=== PATIENT | male | born 1990 | race Caucasian/White ===

== ENCOUNTER → 2019-10-19 15:42 | Outpatient (BNVA) | payer OTHER, SELFPAY | PROVIDERS: Family Provider Family Medicine; PCP Family Medicine; Visit Provider Family Medicine | DX: E11.9 Type 2 diabetes mellitus without complications (principal); E78.5 Hyperlipidemia, unspecified; K21.9 Gastro-esophageal reflux disease without esophagitis | CPT/HCPCS: 80053; 80061; 82044; 83036; 85025 ==

== ENCOUNTER → 2019-11-23 13:58 | Outpatient (BNVA) | payer OTHER, SELFPAY | PROVIDERS: Family Provider Family Medicine; PCP Family Medicine; Visit Provider Family Medicine | DX: E78.2 Mixed hyperlipidemia (principal); E11.9 Type 2 diabetes mellitus without complications; K21.9 Gastro-esophageal reflux disease without esophagitis; F17.219 Nicotine dependence, cigarettes, with unspecified nicotine-induced disorders | CPT/HCPCS: 80053 ==

== ENCOUNTER 2020-04-06 08:39 | Outpatient (CLI) | payer OTHER, SELFPAY ==
[2020-04-06 09:24] LABS: Alanine Aminotransferase 15 U/L (0-41); Albumin Level 4.8 g/dL (3.5-5.2); Alkaline Phosphatase 59 IU/L (40-130); Anion Gap 13.9 (5-19); Aspartate Amino Transferase 15 U/L (0-40); Blood Urea Nitrogen 15 mg/dL (6-20); Calcium 9.4 mg/dL (8.5-10.5); Carbon Dioxide 28 mmol/L (22-29); Chloride 100 mmol/L (98-107); Chol HDL Ratio 2.82 mg/dL (1.0-5.00); Cholesterol 144 mg/dL (0-200); Globulin 2.8 g/dL (1.3-4.6); Glucose 113 mg/dL (65-115); HDL Cholesterol 51 mg/dL (60-100); LDL Cholesterol Calculated 82 mg/dL (50-129); LDL HDL Ratio 1.61 RATIO (0.00-3.22); Osmolality Calculated 283 mOsm/kg (285-295); Potassium 3.9 mmol/L (3.5-5.1); Sodium 138 mmol/L (136-145); Total Bilirubin 0.4 mg/dL (0.15-1.2); Total Protein 7.6 g/dL (6.6-8.7); Triglycerides 53 mg/dL (0-150)
[2020-04-06 09:27] LABS: Estmated Average Glucose 160; Hemoglobin A1C 7.2 % (4.0-6.0)
== END 2020-04-06 08:40 | disposition home or self-care (01) ==
LOC: LAB 08:43
PROVIDERS: PCP Family Medicine; Visit Provider Family Medicine
DX: E78.2 Mixed hyperlipidemia (principal); E11.9 Type 2 diabetes mellitus without complications
CPT/HCPCS: 36415; 80053; 80061; 83036

== ENCOUNTER 2020-06-15 21:00 | Emergency (ER) | payer OTHER, SELFPAY ==
[2020-06-15 21:14] VITALS: BP 138/80; PULSE 100; RESP 18; TEMP 36.7; O2SAT 97; BMI 25.4
--- NOTE | 2020-06-15 21:28 | ED_ITS ---
HPI - Dental/Oral General: Chief complaint: Dental/Oral Stated complaint: tooth pain Time Seen by Provider: 06/15/20 21:21 History of Present Illness: HPI Narrative: Patient complains about right lower molar pain into the jaw. Has been on clindamycin says it did not appear to be working. Has history of dental problems. MD Complaint: tooth pain Teeth map: 1. Onset (ago): day(s) Duration: constant Severity: mild Severity scale (1-10): 4 Relieving factors: nothing Exacerbating factors: chewing, cold and heat Context: history of dental caries and poor dental care Associated symptoms: Reports ear or mastoid pain; Denies fever(s) Treatment prior to arrival: oral analgesic Review of Systems Narrative: Is able to converse denies problems with chewing says right ear hurts and his jaw hurts at times. Says tooth been broke off treated for abscess is not improving. Const: Denies: fever(s), chills or body aches Eyes: Denies: change in vision or blurry vision ENMT: Reports: ear or mastoid pain Card: Denies: chest pain or dyspnea on exertion Resp: Denies: dyspnea, productive cough or non-productive cough GI: Denies: abdominal pain, nausea or vomiting : Denies: difficulty urinating Musc: Denies: extremity pain Skin/Breast: Denies: rash Neuro: Denies: headache(s) Psych: Denies: anxiety or depression Gio/Lymph: Denies: easy bruising PFSH ED PFSH: Medical History (Updated 06/15/20 @ 21:28 by SELVIN Marshall) Chronic GERD Hyperlipidemia Type 2 diabetes mellitus, without long-term current use of insulin Surgical History History of cholecystectomy Family History Other Cancer Diabetes Social History Smoking and tobacco status: current every day smoker cigarettes Packs smoked per day: 1 Alcohol intake: never Physical Exam Const: COMMON NORMALS: no acute distress, average body habitus and patient oriented x3 HENMT: COMMON NORMALS: normocephalic HEAD & SCALP: normal to inspection and normocephalic FACE & SINUS: normal facial exam TEETH & GINGIVA IMAGES: 1. Slight swelling around the gum teeth broken off dental caries jaw slight tenderness to the TMJ area no swelling no redness no lymphadenopathy Eye: COMMON NORMALS: conjunctivae normal GENERAL EYE: appearance normal, both eyes and all related structures CONJUNCTIVA: Yes conjunctivae normal Neck/C-Spine: COMMON NORMALS: no JVD Chest: COMMONS NORMALS: normal inspection of the chest Resp: COMMON NORMALS: normal respiratory effort Cardio: COMMON NORMALS: no JVD and regular rate RATE: regular rate GI: INSPECTION: Yes normal to inspection Extremity: COMMON NORMALS: normal to inspection and full ROM Neuro: COMMON NORMALS: patient oriented x3 Course Vital Signs: Vital signs: Vital Signs Temperature 98.0 F 06/15/20 21:14 Pulse Rate 89 06/15/20 21:36 Respiratory Rate 16 06/15/20 21:36 Blood Pressure 122/81 06/15/20 21:36 Pulse Oximetry 98 06/15/20 21:36 Discharge Plan Discharge Patient Disposition: Home Clinical Impression: Dental abscess Condition: Stable Prescriptions: New levofloxacin 500 mg tablet 500 mg PO DAILY 7 Days Qty: 7 RF: 0 ibuprofen 600 mg tablet 600 mg PO TID PRN (Reason: pain) Qty: 14 RF: 0 No Action clindamycin HCl 300 mg capsule 300 mg PO Q8H 10 Days Qty: 30 RF: 0 atorvastatin 10 mg tablet 10 mg PO DAILY Qty: 90 RF: 1 lisinopril 5 mg tablet 5 mg PO DAILY Qty: 90 RF: 1 metformin 1,000 mg tablet 1,000 mg PO BID Qty: 180 RF: 1 pantoprazole 40 mg tablet,delayed release (DR/EC) 40 mg PO DAILY Qty: 90 RF: 1 Discharge Orders: Discharge Order (Routine); Ordered 06/15/20 Ordered By: Kenton Marx Referrals: Myrtle Vasquez DO [Primary Care Provider] - Discharge Diet: Usual diet Discharge Activity: Resume usual activity Patient Instructions: Dental Abscess (ED) Activity Restrictions/Additional Instructions: Follow-up with medical provider as directed. Take medications as prescribed. Return to the ER or your medical provider if condition worsens. Please read and understand discharge instructions. If any questions ask please. Follow-up dentist as soon as possible Discharge Date/Time: 06/15/20 21:37 Coding Level of Care Code ED Order Processing Clerk for Chg Fwd Exam Comprehensive
[2020-06-15 21:36] VITALS: BP 122/81; PULSE 89; RESP 16; O2SAT 98
[2020-06-15] MEDS: levoFLOXacin 500 mg Tablet PO (21:36)
== END 2020-06-15 21:37 | disposition home or self-care (01) ==
PROVIDERS: Emergency Provider Nurse Practitioner Family; PCP Family Medicine
DX: K04.7 Periapical abscess without sinus (principal); E78.5 Hyperlipidemia, unspecified; E11.9 Type 2 diabetes mellitus without complications; Z79.84 Long term (current) use of oral hypoglycemic drugs; F17.210 Nicotine dependence, cigarettes, uncomplicated
CPT/HCPCS: 12345; 99281; 99282

== ENCOUNTER → 2021-01-23 11:47 | Outpatient (BNVA) | payer BC, SELFPAY | PROVIDERS: PCP Family Medicine; Visit Provider Family Medicine | DX: E78.2 Mixed hyperlipidemia (principal); E11.9 Type 2 diabetes mellitus without complications; M54.5 Low back pain; M54.6 Pain in thoracic spine; K21.9 Gastro-esophageal reflux disease without esophagitis | CPT/HCPCS: 80053; 80061; 82043; 83036; 85025; 85651; 86038; 86140; 86431; 86812 ==

== ENCOUNTER 2021-05-10 12:59 | Outpatient (CLI) | payer BC, SELFPAY ==
--- NOTE | 2021-05-10 13:15 | XR_ITS ---
WS: [id number] THORACIC SPINE TECHNIQUE: AP and lateral views are performed. HISTORY: back pain COMPARISON: None available. Moderate increase in thoracic kyphosis. S-shaped curvature thoracolumbar spine. RIGHT curvature cente red at T11. Mild degenerative disc disease and small endplate osteophytes. Pedicles are all identifie d. No destructive process. XR/XR thoracic spine 2V [id number] IMPRESSION: Mild degenerative RIGHT curvature lower thoracic spine. No fractures.
--- NOTE | 2021-05-10 13:30 | XR_ITS ---
WS: [id number] LUMBAR SPINE: 3 VIEWS TECHNIQUE: AP, lateral and L5-S1 spot. HISTORY: back pain COMPARISON: None available. Mild LEFT curvature mid lumbar spine. 5 nonrib-bearing lumbar vertebral bodies. L5 anterolisthesis by 5.5 mm and bilateral pars defects at L5. Very minimal disc space narrowing at L4-5. SI joints are symmetric bilaterally. No soft tissue abnormalities. XR/XR lumbar spine 2-3V* [id number] IMPRESSION: 1. Mild LEFT scoliosis lumbar spine. 2. Grade 1 anterolisthesis of L5 with spondylolysis.
== END 2021-05-10 13:00 | disposition home or self-care (01) ==
PROVIDERS: PCP Family Medicine; Visit Provider Family Medicine
DX: M54.6 Pain in thoracic spine (principal); M41.86 Other forms of scoliosis, lumbar region; M47.816 Spondylosis without myelopathy or radiculopathy, lumbar region
CPT/HCPCS: 72070; 72100

== ENCOUNTER 2021-05-19 13:22 | Emergency (ER) | payer BC, SELFPAY ==
[2021-05-19 13:33] VITALS: BP 132/79; PULSE 104; RESP 18; TEMP 36.8; O2SAT 96; BMI 28.0
--- NOTE | 2021-05-19 14:57 | XRR_ITS ---
PROCEDURE INFORMATION: Exam: XR Chest Exam date and time: 05/19/2021 2:57 PM Age: 31 years old Clinical indication: Cough TECHNIQUE: Imaging protocol: XR of the chest. Views: 1 view. COMPARISON: CR Chest 1 [place] [id number] 08/25/2018 6:50 AM FINDINGS: Lungs: Unremarkable. No consolidation. Pleural spaces: Unremarkable. No pleural effusion. No pneumothorax. Heart/Mediastinum: Unremarkable. No cardiomegaly. Bones/joints: Unremarkable. XR/XR chest 1V portable [id number] IMPRESSION: No acute findings.
--- NOTE | 2021-05-19 14:57 | ED_ITS ---
HPI - Weakness General: Chief complaint: Weakness Stated complaint: High BP Time Seen by Provider: 05/19/21 14:48 History of Present Illness: HPI Narrative: Patient is a 31-year-old male comes to the ED with cough and malaise. Patient says for the past 10 days he has been feeling unwell. He has had nasal drainage and congestion along with a cough. He also endorses having chills. Patient says he was at work today and he was feeling unwell and took his blood pressure. He had a elevated blood pressure of 150s over 90s. Patient says 2 days ago he was tested for COVID-19 and it was negative. Denies any fever, chest pain, shortness of breath, nausea/vomiting, abdominal pain, bladder or bowel symptoms. Associated symptoms: Reports chills; Denies chest pain, dysuria, fever(s), headache(s), nausea or vomiting Review of Systems Const: Reports: chills, fatigue and malaise; Denies: fever(s) Eyes: Denies: change in vision or eye discomfort ENMT: Reports: nasal discharge and nasal congestion; Denies: throat pain or odynophagia Card: Denies: chest pain, palpitations, edema, swelling of feet/ankles, dyspnea on exertion or orthopnea Resp: Reports: non-productive cough; Denies: dyspnea or productive cough GI: Denies: abdominal pain, nausea, vomiting, diarrhea, constipation or hematochezia : Denies: flank pain, difficulty urinating, dysuria or hematuria Musc: Denies: neck pain, back pain or extremity swelling Skin/Breast: Denies: rash or new lesions Neuro: Denies: headache(s), numbness in extremities or weakness in extremities PFSH ED PFSH: Medical History Chronic GERD Hyperlipidemia Type 2 diabetes mellitus, without long-term current use of insulin Surgical History History of cholecystectomy Family History Other Cancer Diabetes Social History Smoking and tobacco status: current every day smoker cigarettes Packs smoked per day: 1 Alcohol intake: never Physical Exam Const: COMMON NORMALS: no acute distress, patient oriented x3 and alert GENERAL APPEARANCE: cooperative and comfortable HENMT: COMMON NORMALS: normocephalic HEAD & SCALP: normocephalic MOUTH: Normal oral and palatal mucosa present THROAT: posterior oropharynx normal and uvula midline Neck/C-Spine: COMMON NORMALS: supple GENERAL: Yes normal visual inspection Resp: COMMON NORMALS: normal respiratory effort, No retractions, No use of accessory muscles and clear to auscultation bilaterally AUSCULTATION: clear to auscultation bilaterally and wheezes (mild wheezing) expiratory wheezes and upper bilaterally Cardio: COMMON NORMALS: regular rate, regular rhythm, S1 normal heart sound present, S2 normal heart sound present, No gallops present (Cardio), No clicks present (Cardio), No murmurs present (Cardio) and Peripheral pulses 2+ throughout RATE: regular rate RHYTHM: regular rhythm HEART SOUNDS: S1 normal heart sound present and S2 normal heart sound present PERIPHERAL PULSES: Peripheral pulses 2+ throughout GI: COMMON NORMALS: Normal to inspection, nondistended, normoactive bowel sounds present, Soft to palpation, non-tender and no masses PALPATION: Yes Soft to palpation : COMMON NORMALS: Yes no CVA tenderness BLADDER/KIDNEY EXAM: Yes no CVA tenderness Back/Pelvis: COMMON NORMALS: no CVA tenderness Extremity: COMMON NORMALS: normal to inspection Neuro: COMMON NORMALS: patient oriented x3 and moves all extremities SENSORIUM/ORIENTATION: Yes alert Skin: GENERAL SKIN EXAM: dry skin Course Vital Signs: Vital signs: Vital Signs Temperature 98.6 F 05/19/21 16:53 Pulse Rate 118 H 05/19/21 16:53 Respiratory Rate 18 05/19/21 16:53 Blood Pressure 117/68 05/19/21 16:53 Pulse Oximetry 96 05/19/21 16:53 MDM - Weakness MDM Narrative: Medical decision making narrative: Patient is a 31-year-old male comes to the ED with upper respiratory symptoms such as cough and congestion for the past 10 days. He was tested for COVID-19 2 days ago and it was negative. He is also complaining of some generalized fatigue and weakness. Exam of patient shows a nontoxic-appearing 31-year-old male in no acute distress or pain. He has some mild wheezing is lungs, rest of exam is benign. All labs are unremarkable. EKG showed normal sinus rhythm no ST segment elevation or depression seen. Chest x-ray showed no acute findings. Patient was diagnosed with bronchitis discharged home with a prescription for Medrol Dosepak and azithromycin. He was told to follow-up with his PCP in 7 to 10 days for ree valuation. Return to ED precautions given. Patient understood and agree with plan. Lab Data: Attestation: I reviewed the patient's lab results. Labs: Lab Results 05/19/21 05/19/21 15:05 15:05 WBC 9.5 10^3/uL 10^3/ uL (4.0-10.0) RBC 5.60 10^6/uL H 10 ^6/uL (4.1-5.3) Hgb 16.0 g/dL g/dL (11.7-16.6) Hct 46.6 % % (42.0-52.0) MCV 83.2 fl fl (80-94) MCH 28.6 pg pg (28.0-34.0) MCHC 34.3 g/dL g/dL (30.0-36.0) RDW 11.9 % L % (12.1-15.1) Plt Count 268 10^3/cmm 10^3 /cmm (130-400) MPV 9.7 fL fL (7.4-10.4) Neut % (Auto) 71.9 % % Lymph % (Auto) 17.1 % % Owen % (Auto) 7.9 % % Eos % (Auto) 2.5 % % Baso % (Auto) 0.3 % % Neut # (Auto) 6.80 10^3/uL 10^3 /uL (1.8-7.7) Lymph # (Auto) 1.6 10^3/uL 10^3/ uL (0.8-4.8) Owen # (Auto) 0.8 10^3/uL 10^3/ uL (0.2-0.9) Eos # (Auto) 0.2 10^3/uL 10^3/ uL (0.0-0.8) Baso # (Auto) 0.0 10^3/uL 10^3/ uL (0.0-0.1) Nucleated RBC % (a uto) 0 % % Nucleated RBCs # 0.0 /100WBC /100W BC Sodium 136 mmol/L mmol/L (136-145) Potassium 4.1 mmol/L mmol/L (3.5-5.1) Chloride 99 mmol/L mmol/L (98-107) Carbon Dioxide 25 mmol/L mmol/L (22-29) Anion Gap 16.1 (5-19) BUN 16 mg/dL mg/dL (6-20) Creatinine 0.6 mg/dL L mg/dL (0.7-1.2) GFR Calculation 155.2 mL/min H mL /min (90-130) Glucose 168 mg/dL H mg/dL (65-115) Calculated Osmolal ity 287 mOsm/kg mOsm/ kg (285-295) Calcium 9.2 mg/dL mg/dL (8.5-10.5) Total Bilirubin 0.2 mg/dL mg/dL (0.15-1.2) AST 13 U/L U/L (0-40) ALT 17 U/L U/L (0-41) Alkaline Phosphata se 68 IU/L IU/L (40-130) Total Protein 7.4 g/dL g/dL (6.6-8.7) Albumin 4.6 g/dL g/dL (3.5-5.2) Globulin 2.8 g/dL g/dL (1.3-4.6) Imaging Data^: CXR: Attestation: I personally reviewed and interpreted this imaging study as follows: Radiologist's impression: [address] [id number] ReportSigned Patient: Oscar Llamas #: [id number]: 1990Acct#:[id number]/Sex: 31 / MADM Date: 05/19/21Loc: ERRoom /Bed:Attending Dr: Ordering Provider/Ordering MD: Dewey Ventura Date of Service: 05/19/21 Procedure(s): XR chest 1V portable [id number] Accession Number(s): [id number] Report Number: [id number] PROCEDURE INFORMATION: Exam: XR Chest Exam date and time: 05/19/2021 2:57 PM Age: 31 years old Clinical indication: Cough TECHNIQUE: Imaging protocol: XR of the chest. Views: 1 view. COMPARISON: CR Chest 1 [place] [id number] 08/25/2018 6:50 AM FINDINGS: Lungs: Unremarkable. No consolidation. Pleural spaces: Unremarkable. No pleural effusion. No pneumothorax. Heart/Mediastinum: Unremarkable. No cardiomegaly. Bones/joints: Unremarkable. XR/XR chest 1V portable [id number] IMPRESSION: No acute findings. Dictated By:Patira Escobedo By:Patria Escobedo Date/Time:05/19/21D/ 42 EKG Data^: EKG 1: Attestation: I personally reviewed and interpreted this EKG as follows: EKG interpretation date: 05/19/21 Interpretation: Normal sinus rhythm, 82 bpm, no ST segment elevation or depression seen. Discharge Plan Discharge Patient Disposition: Home Clinical Impression: Bronchitis Condition: Stable Prescriptions: New methylprednisolone 4 mg tablets,dose pack See Rx Instructions .ROUTE .COMPLEX Qty: 21 RF: 0 azithromycin 250 mg tablet See Rx Instructions .ROUTE .COMPLEX Qty: 6 RF: 0 No Action meloxicam 15 mg tablet 15 mg PO DAILY Qty: 90 RF: 0 atorvastatin 10 mg tablet 10 mg PO DAILY Qty: 90 RF: 1 pantoprazole 40 mg tablet,delayed release (DR/EC) 40 mg PO DAILY Qty: 90 RF: 1 lisinopril 5 mg tablet 5 mg PO DAILY Qty: 90 RF: 1 metformin 1,000 mg tablet 1,000 mg PO BID Qty: 180 RF: 1 Discharge Orders: Discharge ED (Routine); Ordered 05/19/21 Ordered By: Dewey Ventura Referrals: Myrtle Vasquez DO [Primary Care Provider] - Discharge Diet: Regular Discharge Activity: Increase activity as tolerated Patient Instructions: Acute Bronchitis (ED), Chronic Bronchitis (ED) Activity Restrictions/Additional Instructions: Follow-up with medical provider as directed in 7 to 10 days for reevaluation. Take medications as prescribed. Drink plenty of fluids and stay hydrated. Take [id number] Tylenol and Motrin for any fevers. Return to the ER or your medical provider if condition worsens. Please read and understand discharge instructions. Thank you for choosing [facility] for your healthcare needs today. Please realize this is an emergency room and that we are providing you with a medical screening exam and this may not be complete and all inclusive of all the testing and or work up that you may need to determine your ailment or severity of your illness. It is very important that you follow up as instructed or that you return to the Emergency Department should you have concerns or if your condition changes or worsens in any way. Coding Level of Care Code ED Dyer Helper for Melinda Fwd Exam Comprehensive
--- NOTE | 2021-05-19 14:57 | ECG_ITS ---
[facility] Test Date: 2021-05-19 Pat Name: Oscar Llamas Department: Room: Gender: Male Chicken Picker: : 1990 Requested By: Dewey Ventura Order Number: [id number] Jim MD: RALPH JEAN BAPTISTE Measurements Intervals Hinkle Rate: 82 P: 51 CT: 144 QRS: 40 QRSD: 88 T: 19 QT: 378 QTc: 443 Interpretive Statements SINUS RHYTHM No previous ECG available for comparison Electronically Signed On 05-19-2021 18:22:35 CDT by RALPH JEAN BAPTISTE [email or web address]
[2021-05-19 15:19] LABS: Basophils % 0.3 %; Eosinophils # 0.2 10^3/uL (0.0-0.8); Eosinophils % 2.5 %; Hematocrit 46.6 % (42.0-52.0); Lymphocytes # 1.6 10^3/uL (0.8-4.8); Lymphocytes % 17.1 %; Mean Corpuscular HGB Conc 34.3 g/dL (30.0-36.0); Mean Corpuscular Hemoglobin 28.6 pg (28.0-34.0); Mean Corpuscular Volume 83.2 fl (80-94); Mean Platelet Volume 9.7 fL (7.4-10.4); Monocytes # 0.8 10^3/uL (0.2-0.9); Monocytes % 7.9 %; Neutrophils % 71.9 %; Nucleated Red Blood Cells % 0 %; Platelet Count 268 10^3/cmm (130-400); Red Cell Distribution Width 11.9 % (12.1-15.1); White Blood Count 9.5 10^3/uL (4.0-10.0)
[2021-05-19 15:33] LABS: Alanine Aminotransferase 17 U/L (0-41); Albumin Level 4.6 g/dL (3.5-5.2); Alkaline Phosphatase 68 IU/L (40-130); Anion Gap 16.1 (5-19); Aspartate Amino Transferase 13 U/L (0-40); Blood Urea Nitrogen 16 mg/dL (6-20); Calcium 9.2 mg/dL (8.5-10.5); Carbon Dioxide 25 mmol/L (22-29); Chloride 99 mmol/L (98-107); Globulin 2.8 g/dL (1.3-4.6); Glomerular Filtration Rate 155.2 mL/min (90-130); Glucose 168 mg/dL (65-115); Osmolality Calculated 287 mOsm/kg (285-295); Potassium 4.1 mmol/L (3.5-5.1); Sodium 136 mmol/L (136-145); Total Bilirubin 0.2 mg/dL (0.15-1.2); Total Protein 7.4 g/dL (6.6-8.7)
[2021-05-19 15:55] VITALS: BP 121/65; PULSE 67; RESP 19; O2SAT 96
[2021-05-19] MEDS: ipratropium-albuterol 3 mL Neb INHALATION (16:16)
[2021-05-19 16:17] VITALS: PULSE 89; RESP 18; O2SAT 97
[2021-05-19 16:53] VITALS: BP 117/68; PULSE 118; RESP 18; TEMP 37; O2SAT 96
== END 2021-05-19 16:56 | disposition home or self-care (01) ==
PROVIDERS: Emergency Provider Physician Assistant; PCP Family Medicine
DX: J40 Bronchitis, not specified as acute or chronic (principal); Z79.84 Long term (current) use of oral hypoglycemic drugs; E78.5 Hyperlipidemia, unspecified; E11.9 Type 2 diabetes mellitus without complications; F17.210 Nicotine dependence, cigarettes, uncomplicated
CPT/HCPCS: 71045; 80053; 85025; 87040; 93005; 94640; 99283

== ENCOUNTER → 2021-05-30 12:57 | Outpatient (BNVA) | payer BC, SELFPAY | PROVIDERS: PCP Family Medicine; Visit Provider Internal Medicine | DX: Z15.89 Genetic susceptibility to other disease (principal); M41.9 Scoliosis, unspecified; M25.50 Pain in unspecified joint; Z11.59 Encounter for screening for other viral diseases; Z11.1 Encounter for screening for respiratory tuberculosis; Z79.899 Other long term (current) drug therapy; F17.210 Nicotine dependence, cigarettes, uncomplicated | CPT/HCPCS: 36415; 99204; 99213 ==

== ENCOUNTER 2021-05-30 14:23 | Outpatient (CLI) | payer BC, SELFPAY ==
--- NOTE | 2021-05-30 14:31 | XR_ITS ---
WS: [id number] XR sacroiliac jts m 3V [id number] REASON FOR EXAM: L40.9 - Psoriasis, unspecified FINDINGS: Sacroiliac joints are well defined with thin sclerotic margins. No erosions, bridging, or fusion. XR/XR sacroiliac jts m 3V [id number] IMPRESSION: Normal sacroiliac joints.
--- NOTE | 2021-05-30 14:31 | XR_ITS ---
WS: [id number] XR cervical spine fl/ex [id number] REASON FOR EXAM: Z15.89 - Genetic susceptibility to other disease FINDINGS: No significant compression deformity or other cervical vertebral body abnormality. The intervertebral vertebral disc spaces are relatively well-preserved. No significant listhesis. No significant vertebral body movement with flexion and extension. XR/XR cervical spine fl/ex [id number] IMPRESSION: No significant focal abnormality of the cervical spine.
--- NOTE | 2021-05-30 14:31 | XR_ITS ---
WS: [id number] XR foot RT 2V [id number] REASON FOR EXAM: M25.50 - Pain in unspecified joint FINDINGS: The joint spaces of the right forefoot, midfoot, and hindfoot are intact and well preserved. No focal bony abnormality is identified in the right foot. Right subtalar joint is normal. No abnormality of the talus or calcaneus. XR/XR foot RT 2V [id number] IMPRESSION: No significant bony or joint abnormality of the right foot.
--- NOTE | 2021-05-30 14:31 | XR_ITS ---
WS: [id number] XR hand LT 2V [id number] REASON FOR EXAM: Z15.89 - Genetic susceptibility to other disease FINDINGS: Joint spaces of the left hand are intact and well preserved. No focal bony abnormality is identified. No soft tissue abnormality. XR/XR hand LT 2V [id number] IMPRESSION: No significant bony or joint abnormality of the left hand.
--- NOTE | 2021-05-30 14:31 | XR_ITS ---
WS: [id number] XR hand RT 2V [id number] REASON FOR EXAM: Z15.89 - Genetic susceptibility to other disease FINDINGS: Joint spaces of the right hand are intact and well preserved. No focal bony abnormalities identified. No soft tissue abnormality is noted. XR/XR hand RT 2V [id number] IMPRESSION: No significant bony or joint abnormality.
--- NOTE | 2021-05-30 14:31 | XR_ITS ---
WS: [id number] XR foot LT 2V [id number] REASON FOR EXAM: M25.50 - Pain in unspecified joint FINDINGS: The joint spaces of the left forefoot, the left midfoot, and left hindfoot are intact and well preser mir. No significant bony abnormality is identified. No soft tissue abnormality is identified. XR/XR foot LT 2V [id number] IMPRESSION: No significant bone or joint abnormality.
== END 2021-05-30 14:24 | disposition home or self-care (01) ==
LOC: RAD 14:27
PROVIDERS: PCP Family Medicine; Visit Provider Internal Medicine
DX: L40.9 Psoriasis, unspecified (principal); Z15.89 Genetic susceptibility to other disease; M25.50 Pain in unspecified joint
CPT/HCPCS: 72040; 72202; 73120; 73620; 82306; 82728; 83540; 83735; 84100; 84443; 86140; 86480; 86704; 86803; 87340

== ENCOUNTER → 2021-06-21 13:54 | Outpatient (BNVA) | payer BC, SELFPAY | PROVIDERS: PCP Family Medicine; Visit Provider Internal Medicine | DX: Z15.89 Genetic susceptibility to other disease (principal); M54.50 Low back pain, unspecified; M54.6 Pain in thoracic spine; G89.29 Other chronic pain; E66.9 Obesity, unspecified; E11.9 Type 2 diabetes mellitus without complications; Z79.84 Long term (current) use of oral hypoglycemic drugs; F17.210 Nicotine dependence, cigarettes, uncomplicated | CPT/HCPCS: 99213; 99214 ==

== ENCOUNTER 2021-07-05 10:26 | Outpatient (RCR) | payer BC, SELFPAY | END 2021-07-17 23:59 | disposition home or self-care (01) | LOC: SPT 10:26 | PROVIDERS: PCP Family Medicine; Visit Provider Internal Medicine | DX: M41.9 Scoliosis, unspecified (principal); M54.50 Low back pain, unspecified; M54.6 Pain in thoracic spine | CPT/HCPCS: 97161 ==

== ENCOUNTER → 2021-07-17 09:47 | Outpatient (BNVA) | payer BC, SELFPAY | PROVIDERS: PCP Family Medicine; Referring Provider Internal Medicine; Visit Provider Anesthesiology Pain Medicine | DX: G89.29 Other chronic pain (principal); M54.6 Pain in thoracic spine; M41.9 Scoliosis, unspecified; M43.16 Spondylolisthesis, lumbar region; M25.561 Pain in right knee; M25.562 Pain in left knee; Z15.89 Genetic susceptibility to other disease | CPT/HCPCS: 99205 ==

== ENCOUNTER → 2021-09-03 14:30 | Outpatient (BNVA) | payer BC, SELFPAY | PROVIDERS: PCP Family Medicine; Visit Provider Nurse Practitioner Family | DX: Z20.822 Contact with and (suspected) exposure to COVID-19 (principal); F17.219 Nicotine dependence, cigarettes, with unspecified nicotine-induced disorders | CPT/HCPCS: 87635 ==

== ENCOUNTER → 2021-10-16 08:40 | Outpatient (BNVA) | payer OTHER, SELFPAY | PROVIDERS: PCP Family Medicine; Visit Provider Family Medicine | DX: E11.9 Type 2 diabetes mellitus without complications (principal); E78.2 Mixed hyperlipidemia | CPT/HCPCS: 80053; 80061; 82043; 83036 ==

== ENCOUNTER → 2021-12-18 09:57 | Outpatient (BNVA) | payer OTHER, SELFPAY | PROVIDERS: PCP Family Medicine; Visit Provider Family Medicine | DX: E11.9 Type 2 diabetes mellitus without complications (principal); M43.10 Spondylolisthesis, site unspecified; Z15.89 Genetic susceptibility to other disease; Z79.899 Other long term (current) drug therapy; E78.2 Mixed hyperlipidemia; K21.9 Gastro-esophageal reflux disease without esophagitis; F17.219 Nicotine dependence, cigarettes, with unspecified nicotine-induced disorders | CPT/HCPCS: 80048; 80053; 85025; 85651; 86140 ==

== ENCOUNTER → 2022-03-19 09:02 | Outpatient (BNVA) | payer SELFPAY | PROVIDERS: PCP Family Medicine; Visit Provider Family Medicine | DX: E11.9 Type 2 diabetes mellitus without complications (principal) | CPT/HCPCS: 80053; 83036 ==

== ENCOUNTER → 2022-08-27 10:38 | Outpatient (BNVA) | payer BC, SELFPAY | PROVIDERS: PCP Family Medicine; Visit Provider Family Medicine | DX: E11.9 Type 2 diabetes mellitus without complications (principal); R53.83 Other fatigue | CPT/HCPCS: 80053; 83036; 84439; 84443 ==

== ENCOUNTER 2022-11-19 08:00 | Outpatient (CLI) | payer BC, SELFPAY ==
--- NOTE | 2022-11-19 08:00 | MR_ITS ---
WS: [id number] MRI LUMBAR SPINE NONCONTRAST TECHNIQUE: Sagittal T1, T2 and STIR imaging. Axial T1 and T2 imaging. CLINICAL INFORMATION: M54.9 - Dorsalgia, unspecified COMPARISON: None. FINDINGS: Mild lumbar curve. No acute compression. Grade 1 anterolisthesis L5 on S1 with chronic bilateral pars defects. Grade 1 anterolisthesis measures 6 mm. A few tiny shallow disc protrusions in the lower tho racic spine. L1-L2: Tiny LEFT foraminal protrusion. Mild LEFT foraminal narrowing. Spinal canal and RIGHT foramen are patent. L2-L3: LEFT eccentric disc bulge with mild LEFT foraminal narrowing. Mild facet arthropathy. Spinal c anal and RIGHT foramen are patent. L3-L4: LEFT eccentric disc bulging. Mild LEFT foraminal narrowing. Moderate facet arthropathy. Spinal canal is patent. L4-L5: Tiny shallow central protrusion. Mild RIGHT and no significant LEFT foraminal narrowing. Mild facet arthropathy. Spinal canal is patent. L5-S1: Grade 1 anterolisthesis L5 on S1 measuring 6 mm. Mild to moderate facet arthropathy. Chronic b ilateral pars defects. Mild LEFT foraminal narrowing. Visualized pelvic bony structures: Normal. Paravertebral soft tissues: Normal. MR/MR lumbar spine wo con* [id number] IMPRESSION: 1. Mild lumbar curve. No acute compression. No high-grade central canal stenos is. 2. Grade 1 anterolisthesis L5 on S1 measuring 6 mm with chronic bilateral pars defects. 3. Tiny LEFT foraminal protrusions L1-L2 and L2-L3 with mild LEFT foraminal na rrowing at these levels. 4. Mild LEFT L3-L4 foraminal narrowing due to LEFT eccentric disc bulging. 5. Tiny shallow central protrusion L4-L5. Spinal canal is patent. Mild RIGHT L 4-L5 foraminal narrowing. 6. Mild to moderate facet arthropathy L3-L5.
== END 2022-11-19 08:01 | disposition home or self-care (01) ==
PROVIDERS: PCP Family Medicine; Visit Provider Anesthesiology Pain Medicine
DX: G89.29 Other chronic pain; M47.896 Other spondylosis, lumbar region; M51.26 Other intervertebral disc displacement, lumbar region; M48.061 Spinal stenosis, lumbar region without neurogenic claudication
CPT/HCPCS: 72148

== ENCOUNTER → 2023-02-25 15:26 | Outpatient (BNVA) | payer BC, SELFPAY | PROVIDERS: PCP Family Medicine; Visit Provider Family Medicine | DX: E11.9 Type 2 diabetes mellitus without complications (principal) | CPT/HCPCS: 80053; 80061; 82043; 83036; 85025 ==

== ENCOUNTER → 2023-08-19 12:02 | Outpatient (BNVA) | payer BC, SELFPAY | PROVIDERS: PCP Family Medicine; Visit Provider Family Medicine | DX: E11.9 Type 2 diabetes mellitus without complications (principal) | CPT/HCPCS: 80053; 83036 ==

== ENCOUNTER → 2023-09-29 17:44 | Outpatient (BNVA) | payer BC, SELFPAY | PROVIDERS: PCP Family Medicine; Visit Provider Family Medicine | DX: J06.9 Acute upper respiratory infection, unspecified (principal) | CPT/HCPCS: 87400 ==

== ENCOUNTER → 2023-11-25 10:07 | Outpatient (BNVA) | payer BC, SELFPAY | PROVIDERS: PCP Family Medicine; Visit Provider Family Medicine | DX: R19.7 Diarrhea, unspecified (principal) | CPT/HCPCS: 86003; 86008 ==

== ENCOUNTER → 2024-03-09 15:38 | Outpatient (BNVA) | payer BC, SELFPAY | DX: E11.9 Type 2 diabetes mellitus without complications (principal); E78.2 Mixed hyperlipidemia | CPT/HCPCS: 80053; 80061; 83036; 85025 ==

== ENCOUNTER → 2024-06-16 10:27 | Outpatient (BNVA) | payer BC, SELFPAY | DX: E11.9 Type 2 diabetes mellitus without complications (principal) | CPT/HCPCS: 80053; 83036 ==

== ENCOUNTER → 2024-06-18 13:53 | Outpatient (BNVA) | payer BC, SELFPAY | DX: E11.9 Type 2 diabetes mellitus without complications (principal); S92.355A Nondisplaced fracture of fifth metatarsal bone, left foot, initial encounter for closed fracture; X50.9XXA Other and unspecified overexertion or strenuous movements or postures, initial encounter | CPT/HCPCS: 73610; 73630 ==

== ENCOUNTER → 2024-06-29 13:37 | Outpatient (BNVA) | payer BC, SELFPAY | PROVIDERS: Visit Provider Podiatrist Foot & Ankle Surgery | DX: M79.672 Pain in left foot (principal); S92.352A Displaced fracture of fifth metatarsal bone, left foot, initial encounter for closed fracture; X50.9XXA Other and unspecified overexertion or strenuous movements or postures, initial encounter | CPT/HCPCS: 73630 ==

== ENCOUNTER → 2024-07-20 15:04 | Outpatient (BNVA) | payer BC, SELFPAY | PROVIDERS: Visit Provider Podiatrist Foot & Ankle Surgery | DX: S92.352A Displaced fracture of fifth metatarsal bone, left foot, initial encounter for closed fracture (principal); X58.XXXA Exposure to other specified factors, initial encounter; B35.1 Tinea unguium | CPT/HCPCS: 73630 ==

== ENCOUNTER → 2024-09-15 15:14 | Outpatient (BNVA) | payer BC, SELFPAY | DX: E11.9 Type 2 diabetes mellitus without complications (principal) | CPT/HCPCS: 80053; 83036 ==

== ENCOUNTER → 2025-03-22 10:48 | Outpatient (BNVA) | payer BC, SELFPAY | PROVIDERS: PCP Family Medicine; Visit Provider Family Medicine | DX: E11.9 Type 2 diabetes mellitus without complications (principal) | CPT/HCPCS: 80053; 80061; 82043; 83036; 85025; 85651; 86140; 86431 ==

== ENCOUNTER → 2025-04-19 15:52 | Outpatient (BNVA) | payer BC, SELFPAY | PROVIDERS: PCP Family Medicine; Visit Provider Family Medicine | DX: N39.3 Stress incontinence (female) (male) (principal); R30.0 Dysuria | CPT/HCPCS: 81000 ==